=== PATIENT | male | born 1995 | race Caucasian/White ===

== ENCOUNTER 2019-02-01 17:12 | Inpatient (IN) | payer BC, SELFPAY ==
[2019-02-01 17:13] VITALS: BP 127/71; PULSE 64; RESP 16; TEMP 36.8; O2SAT 99; BMI 24.2
--- NOTE | 2019-02-01 17:45 | ED.DCSUM_ITS ---
- ER Visit Summary Date of Service: 02/01/19 Chief Complaint: Requesting heroin detox History of Present Illness: The patient is a 24 M presenting requesting heroin detox. Patient states his last use was last night. He uses approximate 1 g of heroin per day. He relapsed approximately 3 months ago. Prior to that his last detox was 6 months ago. He denies alcohol or other drug use. He complains of mild abdominal cramping, nausea. He went to [facility] earlier today and they stated that he was not withdrawing yet and advised to wait until he was in withdrawal to come to the ED. Patient has been waiting in the waiting room for several hours and he now feels like he is in withdrawal. Physical Examination: Vitals are stable. Patient is afebrile. Alert no acute distress. HEENT exam is unremarkable. Neck is supple. Lungs are clear and equal bilaterally. Heart is regular rate and rhythm. Abdomen is soft nontender nondistended. Extremities are unremarkable. Skin is warm and dry. No focal neurologic deficit. Remainder of exam is unremarkable. Emergency Department Course and Treatment: CBC, chemistries unremarkable. ALT 127, AST 54. Alcohol is negative. Tox positive for opiates. Discussed with the hospitalist for admission. Disposition: Admission Impression: Heroin withdrawal This note was generated with [employer] dictation software. It may contain incorrect words, spelling, and punctuation that were not noted in review of the chart prior to signing ED Disposition - Plan for ED Patient: Referrals: Care Physician,No Primary [Primary Care Provider] -
[2019-02-01 17:50] LABS: Absolute Lymphocyte Count 1.04 X10^3/ul (0.83-4.51); Absolute Neutrophil Count 3.3 X10^3/uL (2.0-7.7); Basophil# 0.02 X10^3/uL; Basophil% 0.4 % (0-1); Eosinophil# 0.16 X10^3/uL; Eosinophils% 3.2 % (0-5); Hematocrit 45.4 % (40-54); Hemoglobin 15.8 g/dl (13.0-16.5); Lymphocyte # 1.04 X10^3/ul (4.0); Lymphocyte % 20.8 % (19-41); Mean Corp Hgb Conc 34.8 g/gl (32-36); Mean Corpuscular Hgb 30.7 pg (27.0-32.0); Mean Corpuscular Volume 88.2 fL (80-94); Mean Platelet Vol. 9.9 fl (6.2-12.0); Monocyte# 0.47 X10^3/uL; Monocyte% 9.4 % (0-10); Neutrophil # 3.29 X10^3/uL (2.7-7.7); Platelet Count 200 K/mm3 (150-450); RBC Distribution Width CV 12.5 % (11.6-14.6); RBC Distribution Width SD 40.1 fl (35.1-43.9); Red Blood Count 5.15 M/mm3 (4.6-6.2)
[2019-02-01 17:56] LABS: POSITIVE COUNT NO; POSITIVE DIFFERENTIAL NO; POSITIVE MORPHOLOGY NO
[2019-02-01 18:06] LABS: AST(SGOT) 54 U/L (15-37); Alanine Aminotransfer ALT/SGPT 127 U/L (16-61); Albumin, Serum 4.2 g/dL (3.2-5.0); Alkaline Phosphatase 100 U/L (45-117); Anion Gap 6 (5-15); BUN 8 mg/dL (7-18); BUN/Creat Ratio 10.3 RATIO (10-20); Bilirubin, Direct 0.16 mg/dL (0.00-0.30); Calcium,Total 8.9 mg/dL (8.5-10.1); Chloride 103 mmol/L (98-107); Creatinine, Serum 0.77 mg/dL (0.70-1.30); EST Glomerular Filtration Rate 129 mL/min (>60); Est Glom Filt Rate - Afr Amer 156 mL/min (>60); Estimated Creatinine Clearance 131.19 ml/min; Globulin 3.9 g/dL (2.2-4.2); Glucose 97 mg/dL (74-106); Potassium 4.4 mmol/L (3.5-5.1); Protein, Total 8.1 g/dL (6.4-8.2); Sodium Level 139 mmol/L (136-145)
[2019-02-01 19:12] VITALS: BP 104/64; PULSE 55; RESP 16; O2SAT 100
[2019-02-01 19:18] LABS: Amphetamine Urine VISTA NEGATIVE (<1000 ng/mL); Barbiturate Urine VISTA NEGATIVE (< 200 ng/mL); Benzodiazepine Urine VISTA NEGATIVE (< 200 ng/mL); Cocaine Urine VISTA NEGATIVE (< 300 ng/mL); Ecstacy Urine VISTA NEGATIVE (< 500 ng/mL); Methadone Urine VISTA NEGATIVE (< 300 ng/mL); PCP Urine VISTA NEGATIVE (< 25 ng/mL); THC Urine VISTA NEGATIVE (< 50 ng/mL); Vista UDS pH Range 6
[2019-02-01 19:28] VITALS: BMI 24.2
--- NOTE | 2019-02-01 19:30 | PCM.HP.STD ---
Problem List (1) Opiate dependence Status: Acute Qualifiers: Substance use status: in withdrawal Qualified Code(s): F11.23 - Opioid dependence with withdrawal (2) Acute opioid withdrawal Status: Acute History of Present Illness Date of Admission: 02/01/19 Chief Complaint: Acute opioid withdrawal - 1 day The patient is a 24 year old M with no significant PMHx who comes in for medical stabilization with acute opioid withdrawal symptoms. He admits to using 1 g of heroin daily. Last use was 10:30pm 01/31/19. He admits to being in detox 6 months ago. He denies any other illicit drug use or alcohol use. He admits to smoking about 1 pack of cigarettes a day He saw [facility] earlier on but did not have any active withdrawal symptoms at the time. He presented later on to the emergency department with planes of crampy abdominal pain, feeling cold, slightly nauseous but no vomiting, having mild muscle aches. His vitals were stable in the emergency department. His admitting CINA scale was 10. His admitting blood work was unremarkable except for slight elevation in AST and ALT. His urine toxicology was positive for opiates. Alcohol level was 9. Past Medical History Allergies No Known Allergies Allergy (Verified 02/01/19 17:26) Home Medications: Ambulatory Orders Medication Instructions Recorded NK 02/01/19 Surgical History: no surgical history Psychiatric History: No pertinent psych hx Lives: With Family Smoking Status: Current every day smoker Tobacco Use: Cigarettes Alcohol: None Drugs: Heroin - *Family History Maternal History Items: No pertinent history Paternal History Items: No pertinent history Sibling History Items: No pertinent history Review of Systems Constitutional: Reports: Anorexia, Chills. Denies: Fever, Weakness, Weight Change, Fatigue Eyes: Denies: Blurred vision, Cataracts, Conjunctivae Inflammation, Pain, Redness, Vision Change HEENT: Denies: Difficulty Hearing, Difficulty Swallowing, Head Aches, Hearing Changes, Sinus Congestion, Sinus Drainage, Sore Throat Cardiovascular: Denies: Chest Pain, Claudication, Orthopnea, Palpitations Respiratory: Denies: Cough, Hemoptysis, Pleuritic Pain, Shortness of breath at rest, Shortness of breath upon exertion, Sputum production Gastrointestinal: Reports: Abdominal Pain, Nausea. Denies: Diarrhea, Dyspepsia, Hematemesis, Hematochezia, Vomiting Genitourinary: Denies: Dysuria, Frequency, Incontinence, Nocturia Musculoskeletal: Reports: Muscle pain. Denies: Joint Pain, Joint stiffness, Joint swelling, Joint Tenderness Skin: Denies: Dryness, Jaundice, Pruritis, Rash, Wounds Neurological: Denies: Difficulty swallowing, Focal weakness, Numbness, Tingling Psychiatric: Denies: Anxiety, Depression, Homicidal Ideations, Suicidal Ideations Hematologic/ Lymphatic: Denies: Easy Bruising, Easy Bleeding VTE Information - Inpt Only VTE Present on Admission: No VTE Pharm Prophylaxis ordered?: Yes Patient Problems: Active and Suspected Problems Opiate dependence (Acute) Acute opioid withdrawal (Acute) - Physical Exam General: Alert, Oriented x3, Cooperative, No apparent distress, - - slightly restless HEENT: Atraumatic, PERRLA, EOMI, Normocephalic Oral: Moist Mucosa Neck: Supple Lungs: Clear to auscultation, Normal air movement Cardiovascular: Regular rate, Regular Rhythm, Normal S1, Normal S2, No murmurs Abdomen: Bowel Sounds Present, Soft, Non Tender, Non-Distended, No Hepato-splenomegaly Extremities: No edema Skin: No rashes, No breakdown Musculoskeletal: No Tenderness to Palpation of Joints or Extremities Lymphatic: No Cervical, Supraclavicular, or Inguinal Adenopathy Neurological: Cranial nerves II-XII grossly intact, Neuro grossly intact Psych/Mental Status: Normal Affect, Appropriate Vital Signs Temp Pulse Resp BP Pulse Ox 98.2 F 55 L 16 104/64 100 02/01/19 17:13 02/01/19 19:12 02/01/19 19:12 02/01/19 19:12 02/01/19 19:12 Oxygen Delivery Method Room Air Weight: 68.039 kg Body Mass Index (BMI) 24.2 Laboratory Tests Past 24 Hrs 02/01/19 02/01/19 02/01/19 17:30 17:30 17:30 WBC 5.0 RBC 5.15 Hgb 15.8 Hct 45.4 MCV 88.2 MCH 30.7 MCHC 34.8 RDW 12.5 RDW Differential 40.1 Plt Count 200 MPV 9.9 Immature Gran % (Auto) 0.200 Neut % (Auto) 66.0 Lymph % (Auto) 20.8 [place] % (Auto) 9.4 Eos % (Auto) 3.2 Baso % (Auto) 0.4 Absolute Neuts (auto) 3.3 Absolute Lymphs (auto) 1.04 Total Counted Not Reportable Sodium 139 Potassium 4.4 Chloride 103 Carbon Dioxide 30.0 Anion Gap 6 BUN 8 Creatinine 0.77 Estim Creat Clear Calc 131.19 Est GFR (MDRD) Af Amer 156 Est GFR (MDRD) Non-Af 129 BUN/Creatinine Ratio 10.3 Glucose 97 Calcium 8.9 Total Bilirubin 0.50 Direct Bilirubin 0.16 AST 54 H ALT 127 H Alkaline Phosphatase 100 Total Protein 8.1 Albumin 4.2 Globulin 3.9 Urine Opiates Screen Urine Methadone Screen Ur Barbiturates Screen Ur Phencyclidine Scrn Ur Amphetamines Screen U Methamphetamin-MDMA U Benzodiazepines Scrn Urine Cocaine Screen U Cannabinoids Screen Ur Drug Screen Comment Ethyl Alcohol 9.0 02/01/19 18:50 WBC RBC Hgb Hct MCV MCH MCHC RDW RDW Differential Plt Count MPV Immature Gran % (Auto) Neut % (Auto) Lymph % (Auto) [place] % (Auto) Eos % (Auto) Baso % (Auto) Absolute Neuts (auto) Absolute Lymphs (auto) Total Counted Sodium Potassium Chloride Carbon Dioxide Anion Gap BUN Creatinine Estim Creat Clear Calc Est GFR (MDRD) Af Amer Est GFR (MDRD) Non-Af BUN/Creatinine Ratio Glucose Calcium Total Bilirubin Direct Bilirubin AST ALT Alkaline Phosphatase Total Protein Albumin Globulin Urine Opiates Screen POSITIVE H Urine Methadone Screen NEGATIVE Ur Barbiturates Screen NEGATIVE Ur Phencyclidine Scrn NEGATIVE Ur Amphetamines Screen NEGATIVE U Methamphetamin-MDMA NEGATIVE U Benzodiazepines Scrn NEGATIVE Urine Cocaine Screen NEGATIVE U Cannabinoids Screen NEGATIVE Ur Drug Screen Comment Ethyl Alcohol Assessment/Plan All Active Problems Opiate dependence (Acute) Acute opioid withdrawal (Acute) 24 year old M with no significant PMHx who comes in for medical stabilization with acute opioid withdrawal symptoms. He admits to using 1 g of heroin daily. Last use was 10:30pm 01/31/19. Urine tox was positive for opiates. 1. Acute opioid withdrawal, in the known heroin use, admitting CINA score was 10. Patient is seeking medical stabilization. Reportedly seen [facility] earlier on, will consult them [facility], monitor and medicate per [facility] protocol, will use a Librium protocol as patient is not severely withdrawing 2. Nicotine dependence, will put on replacement with patch and gum 3. Elevated AST/ALT, likely transient, likely heroin related, will trend CMP in a.m. 4. DVT PPx- early ambulation Code Visit Inpatient E&M: 11934 Init Hosp L2
[2019-02-01 19:55] VITALS: BMI 23.3
[2019-02-01 19:58] VITALS: BP 115/75; PULSE 50; RESP 14; TEMP 36.2; O2SAT 100
[2019-02-01] MEDS: Pramipexole Di-HCl 0.25 MG Tablet PO (20:33)
[2019-02-01] MEDS: Dicyclomine 10 MG Capsule 20 MG PO (20:33)
[2019-02-01] MEDS: Senna Tablet 1 TABLET PO (20:33)
[2019-02-01] MEDS: chlordiazePOXIDE 25 MG Capsule PO (20:33)
[2019-02-01 22:00] VITALS: BP 111/64; PULSE 49; RESP 16; TEMP 37.1
[2019-02-01] MEDS: traZODone 50 MG Tablet PO (22:27)
[2019-02-01] MEDS: Methocarbamol 750 MG Tablet PO (22:36)
[2019-02-02] VITALS (7 sets, daily range): BP systolic 96–119; BP diastolic 52–78; PULSE 50–60; RESP 14–18; TEMP 36.4–37.1; O2SAT 99
[2019-02-02 06:29] LABS: ALB/GLOB Ratio 1.1 RATIO (0.9-2.4); AST(SGOT) 46 U/L (15-37); Alanine Aminotransfer ALT/SGPT 108 U/L (16-61); Albumin, Serum 3.8 g/dL (3.2-5.0); Alkaline Phosphatase 87 U/L (45-117); Anion Gap 7 (5-15); BUN 9 mg/dL (7-18); BUN/Creat Ratio 11.9 RATIO (10-20); Chloride 107 mmol/L (98-107); Creatinine, Serum 0.75 mg/dL (0.70-1.30); EST Glomerular Filtration Rate 133 mL/min (>60); Est Glom Filt Rate - Afr Amer 161 mL/min (>60); Estimated Creatinine Clearance 134.69 ml/min; Globulin 3.5 g/dL (2.2-4.2); Glucose 103 mg/dL (74-106); Protein, Total 7.3 g/dL (6.4-8.2); Sodium Level 142 mmol/L (136-145)
[2019-02-02] MEDS: chlordiazePOXIDE 25 MG Capsule PO (07:01)
[2019-02-02] MEDS: hydrOXYzine PAM 25 MG Capsule 50 MG PO ×2 (07:01→14:50)
[2019-02-02] MEDS: Ondansetron ODT 4 MG Tablet PO (07:01)
[2019-02-02] MEDS: Nicotine Polacrilex 2 MG GUM PO (07:03)
[2019-02-02] MEDS: Ibuprofen 600 MG Tablet PO (09:12)
[2019-02-02] MEDS: Buprenorphine HCl 2 MG TAB.SUBL SL ×2 (09:13→16:24)
--- NOTE | 2019-02-02 09:16 | PN_ITS ---
Patient Problems: Active and Suspected Problems Opiate dependence (Acute) Acute opioid withdrawal (Acute) Subjective: Patient seen and examined. He complains of withdrawal symptoms such as tremors, fevers and chills and abdominal cramps. He is here for detox from heroin. He last used IV heroin yesterday. He has been through detox previously but was unsuccessful. Review of systems otherwise negative. Labs and vitals reviewed. Vitals/I&O's: Vital Signs Temp Pulse Resp BP Pulse Ox 98.4 F 60 16 117/69 100 02/02/19 06:00 02/02/19 09:07 02/02/19 06:00 02/02/19 06:00 02/01/19 19:58 Oxygen Delivery Method Room Air Weight: 145 lb Body Mass Index (BMI) 23.3 Intake and Output for Last 24 Hours 01/31/19 02/01/19 02/02/19 23:59 23:59 23:59 Intake Total 640 / 640 Balance 640 / 640 General: Alert, Oriented x3, Cooperative, - - anxious, looks uncomfortable HEENT: Atraumatic, PERRLA, EOMI, Normocephalic Oral: Moist Mucosa Neck: Supple, No JVD, Negative Carotid Bruits Lungs: Clear to auscultation, Normal air movement, No rhonchi, No wheeze, No rales Cardiovascular: Regular rate, Regular Rhythm, Normal S1, Normal S2, No murmurs Abdomen: Bowel Sounds Present, Soft, Non Tender, Non-Distended, No Hepato- splenomegaly Extremities: No clubbing, No cyanosis, No edema, Capillary Refill Less than 3 Seconds Skin: No rashes, No breakdown Musculoskeletal: No Tenderness to Palpation of Joints or Extremities Lymphatic: No Cervical, Supraclavicular, or Inguinal Adenopathy Neurological: Cranial nerves II-XII grossly intact, Neuro grossly intact, Motor Exam 5/5 strength throughout Psych/Mental Status: Normal Affect, Appropriate, Alert and oriented to time, place, person, mood and affect Laboratory Results 02/01/19 17:30: WBC 5.0, RBC 5.15, Hgb 15.8, Hct 45.4, MCV 88.2, MCH 30.7, MCHC 34.8, RDW 12.5, RDW Differential 40.1, Plt Count 200, MPV 9.9, Immature Gran % (Auto) 0.200, Neut % (Auto) 66.0, Lymph % (Auto) 20.8, [place] % (Auto) 9.4, Eos % (Auto) 3.2, Baso % (Auto) 0.4, Absolute Neuts (auto) 3.3, Absolute Lymphs (auto) 1.04, Total Counted Not Reportable 02/01/19 17:30: Sodium 139, Potassium 4.4, Chloride 103, Carbon Dioxide 30.0, Anion Gap 6, BUN 8, Creatinine 0.77, Estim Creat Clear Calc 131.19, Est GFR (MDRD) Af Amer 156, Est GFR (MDRD) Non-Af 129, BUN/Creatinine Ratio 10.3, Glucose 97, Calcium 8.9, Total Bilirubin 0.50, Direct Bilirubin 0.16, AST 54 H, ALT 127 H, Alkaline Phosphatase 100, Total Protein 8.1, Albumin 4.2, Globulin 3.9 02/01/19 17:30: Ethyl Alcohol 9.0 02/01/19 18:50: Urine Opiates Screen POSITIVE H, Urine Methadone Screen NEGATIVE, Ur Barbiturates Screen NEGATIVE, Ur Phencyclidine Scrn NEGATIVE, Ur Amphetamines Screen NEGATIVE, U Methamphetamin-MDMA NEGATIVE, U Benzodiazepines Scrn NEGATIVE, Urine Cocaine Screen NEGATIVE, U Cannabinoids Screen NEGATIVE, Ur Drug Screen Comment 02/02/19 05:20: Sodium 142, Potassium 4.0, Chloride 107, Carbon Dioxide 28.0, Anion Gap 7, BUN 9, Creatinine 0.75, Estim Creat Clear Calc 134.69, Est GFR (MDRD) Af Amer 161, Est GFR (MDRD) Non-Af 133, BUN/Creatinine Ratio 11.9, Glucose 103, Calcium 9.0, Total Bilirubin 0.50, AST 46 H, ALT 108 H, Alkaline Phosphatase 87, Total Protein 7.3, Albumin 3.8, Globulin 3.5, Albumin/Globulin Ratio 1.1 Current Medications Acetaminophen (Tylenol) 500 mg PO Q4H PRN PRN PRN Reason: Temp > 100.4 F Al Hydroxide/Mg Hydroxide (Mylanta Ii) 30 ml PO Q6H PRN PRN PRN Reason: dyspesia Buprenorphine HCl (Buprenorphine Hcl) 4 mg SL Q8H GISELA; Taper Stop: 02/05/19 11:59 Last Admin: 02/02/19 09:13 Dose: 4 mg Documented by: Chlordiazepoxide (Librium) 25 mg PO Q6H PRN PRN PRN Reason: Moderate-Severe Anxiety Last Admin: 02/02/19 07:01 Dose: 25 mg Documented by: Clonidine (Catapres) 0.1 mg PO Q2H PRN PRN PRN Reason: Hot/Cold Sweats or Anxiety Dicyclomine HCl (Bentyl) 20 mg PO Q6H PRN PRN PRN Reason: Abdomnial Discomfort Last Admin: 02/01/19 20:33 Dose: 20 mg Documented by: Hydroxyzine Pamoate (Vistaril Pamoate Capsule) 50 mg PO Q6H PRN PRN PRN Reason: Mild Anxiety Last Admin: 02/02/19 07:01 Dose: 50 mg Documented by: Ibuprofen (Motrin) 600 mg PO Q8H PRN PRN PRN Reason: Mild-Moderate Pain (1-5/10) Last Admin: 02/02/19 09:12 Dose: 600 mg Documented by: Loperamide HCl (Imodium) 2 - 4 mg PO UD PRN PRN Reason: LOOSE STOOLS Methocarbamol (Methocarbamol) 750 mg PO Q6H PRN PRN PRN Reason: Muscle Aches Last Admin: 02/01/19 22:36 Dose: 750 mg Documented by: Nicotine (Nicoderm Cq (Pbkc)) 21 mg TRANSDERM. DAILY GISELA Last Admin: 02/01/19 20:33 Dose: 21 mg Documented by: Nicotine Polacrilex (Rugby Nicotine (Bkc)) 2 mg PO Q2H PRN PRN PRN Reason: Nicotine Craving Last Admin: 02/02/19 07:03 Dose: 2 mg Documented by: Nutritional Formula (Lactose Free) (Ensure Enlive) 120 ml PO 4X/DAY GISELA Last Admin: 02/02/19 09:13 Dose: 120 ml Documented by: Ondansetron HCl (Zofran Odt) 4 mg PO Q6H PRN PRN PRN Reason: NAUSEA Last Admin: 02/02/19 07:01 Dose: 4 mg Documented by: Pramipexole Dihydrochloride (Mirapex) 0.25 mg PO Q12H PRN PRN PRN Reason: Restless Legs Last Admin: 02/01/19 20:33 Dose: 0.25 mg Documented by: Senna (Senokot) 1 tablet PO QHS PRN PRN Reason: Constipation Last Admin: 02/01/19 20:33 Dose: 1 tablet Documented by: Trazodone HCl (Desyrel) 50 mg PO QHS [facility] Last Admin: 02/01/19 22:27 Dose: 50 mg Documented by: Medical Necessity - Tobacco Use Smoking Status: Current every day smoker Tobacco Use: Cigarettes Assessment/Plan All Active Problems Opiate dependence (Acute) Acute opioid withdrawal (Acute) 1. Acute opiate withdrawal * on clonidine withdrawal protocol. * patient still complaining of withdrawal symptoms, and wanted Subutex added on * Buprenorphine taper aded on * 2. Nicotine dependence: on nicotine patch. Counselled to quit 3. Elevated transaminases: Trending down. AST and ALT have trended down slightly to 46 and 108 respectively. Will monitor. DVT prophylaxis: Encourage early ambulation. Low risk. Code Visit Inpatient E&M: 74522 Subs Hosp L2
[2019-02-02] MEDS: Dicyclomine 10 MG Capsule 20 MG PO (11:01)
[2019-02-02] MEDS: Acetaminophen 500 MG Tablet PO ×2 (13:08→17:54)
[2019-02-02] MEDS: Pramipexole Di-HCl 0.25 MG Tablet PO (13:08)
[2019-02-02] MEDS: Methocarbamol 750 MG Tablet PO (14:50)
--- NOTE | 2019-02-02 15:11 | CHAPLAIN ---
patient sleeping; will attempt a later visit
[2019-02-03] MEDS: traZODone 50 MG Tablet PO ×2 (00:27→23:11)
[2019-02-03] MEDS: Buprenorphine HCl 2 MG TAB.SUBL SL ×3 (00:27→15:24)
[2019-02-03 02:00] VITALS: RESP 16
[2019-02-03 04:00] VITALS: BP 120/67; PULSE 68; RESP 16; TEMP 36.7; O2SAT 98
[2019-02-03 05:56] VITALS: RESP 16
[2019-02-03] MEDS: Methocarbamol 750 MG Tablet PO ×2 (08:28→15:24)
[2019-02-03] MEDS: chlordiazePOXIDE 25 MG Capsule PO ×3 (08:28→23:13)
[2019-02-03] MEDS: Pramipexole Di-HCl 0.25 MG Tablet PO (08:28)
[2019-02-03 10:00] VITALS: BP 118/67; PULSE 70; RESP 16; TEMP 36.7
--- NOTE | 2019-02-03 10:12 | PN_ITS ---
Patient Problems: Active and Suspected Problems Opiate dependence (Acute) Acute opioid withdrawal (Acute) Subjective: Patient seen and examined. He has no complaints and feels well. Review of systems otherwise negative. Labs and vitals reviewed. Today's day 2 of detox. Vitals/I&O's: Vital Signs Temp Pulse Resp BP Pulse Ox 98.0 F 68 16 120/67 98 02/03/19 04:00 02/03/19 04:00 02/03/19 05:56 02/03/19 04:00 02/03/19 04:00 Oxygen Delivery Method Room Air Weight: 145 lb 0.004 oz Body Mass Index (BMI) 23.3 Intake and Output for Last 24 Hours 02/01/19 02/02/19 02/03/19 23:59 23:59 23:59 Intake Total 640 / 1080 680 / 680 Balance 640 / 1080 680 / 680 General: Alert, Oriented x3, Cooperative, HEENT: Atraumatic, PERRLA, EOMI, Normocephalic Oral: Moist Mucosa Neck: Supple, No JVD, Negative Carotid Bruits Lungs: Clear to auscultation, Normal air movement, No rhonchi, No wheeze, No rales Cardiovascular: Regular rate, Regular Rhythm, Normal S1, Normal S2, No murmurs Abdomen: Bowel Sounds Present, Soft, Non Tender, Non-Distended, No Hepato- splenomegaly Extremities: No clubbing, No cyanosis, No edema, Capillary Refill Less than 3 Seconds Skin: No rashes, No breakdown Musculoskeletal: No Tenderness to Palpation of Joints or Extremities Lymphatic: No Cervical, Supraclavicular, or Inguinal Adenopathy Neurological: Cranial nerves II-XII grossly intact, Neuro grossly intact, Motor Exam 5/5 strength throughout Psych/Mental Status: Normal Affect, Appropriate, Alert and oriented to time, place, person, mood and affect Current Medications Acetaminophen (Tylenol) 500 mg PO Q4H PRN PRN PRN Reason: Temp > 100.4 F Last Admin: 02/02/19 17:54 Dose: 500 mg Documented by: Al Hydroxide/Mg Hydroxide (Mylanta Ii) 30 ml PO Q6H PRN PRN PRN Reason: dyspesia Buprenorphine HCl (Buprenorphine Hcl) 2 mg SL Q8H GISELA; Taper Stop: 02/05/19 11:59 Last Admin: 02/03/19 08:23 Dose: 2 mg Documented by: Chlordiazepoxide (Librium) 25 mg PO Q6H PRN PRN PRN Reason: Moderate-Severe Anxiety Last Admin: 02/03/19 08:28 Dose: 25 mg Documented by: Clonidine (Catapres) 0.1 mg PO Q2H PRN PRN PRN Reason: Hot/Cold Sweats or Anxiety Dicyclomine HCl (Bentyl) 20 mg PO Q6H PRN PRN PRN Reason: Abdomnial Discomfort Last Admin: 02/02/19 11:01 Dose: 20 mg Documented by: Hydroxyzine Pamoate (Vistaril Pamoate Capsule) 50 mg PO Q6H PRN PRN PRN Reason: Mild Anxiety Last Admin: 02/02/19 14:50 Dose: 50 mg Documented by: Ibuprofen (Motrin) 600 mg PO Q8H PRN PRN PRN Reason: Mild-Moderate Pain (1-5/10) Last Admin: 02/02/19 09:12 Dose: 600 mg Documented by: Loperamide HCl (Imodium) 2 - 4 mg PO UD PRN PRN Reason: LOOSE STOOLS Methocarbamol (Methocarbamol) 750 mg PO Q6H PRN PRN PRN Reason: Muscle Aches Last Admin: 02/03/19 08:28 Dose: 750 mg Documented by: Nicotine (Nicoderm Cq (Pbkc)) 21 mg TRANSDERM. DAILY [facility] Last Admin: 02/02/19 10:59 Dose: Not Given Documented by: Nicotine Polacrilex (Rugby Nicotine (Bkc)) 2 mg PO Q2H PRN PRN PRN Reason: Nicotine Craving Last Admin: 02/02/19 07:03 Dose: 2 mg Documented by: Nutritional Formula (Lactose Free) (Ensure Enlive) 120 ml PO 4X/DAY GISELA Last Admin: 02/02/19 21:26 Dose: Not Given Documented by: Ondansetron HCl (Zofran Odt) 4 mg PO Q6H PRN PRN PRN Reason: NAUSEA Last Admin: 02/02/19 07:01 Dose: 4 mg Documented by: Pramipexole Dihydrochloride (Mirapex) 0.25 mg PO Q12H PRN PRN PRN Reason: Restless Legs Last Admin: 02/03/19 08:28 Dose: 0.25 mg Documented by: Senna (Senokot) 1 tablet PO QHS PRN PRN Reason: Constipation Last Admin: 02/01/19 20:33 Dose: 1 tablet Documented by: Trazodone HCl (Desyrel) 50 mg PO QHS [facility] Last Admin: 02/03/19 00:27 Dose: 50 mg Documented by: Medical Necessity - Tobacco Use Smoking Status: Current every day smoker Tobacco Use: Cigarettes Assessment/Plan All Active Problems Opiate dependence (Acute) Acute opioid withdrawal (Acute) 1. Acute opiate withdrawal * on buprenorphine withdrawal protocol * stable * 2. Nicotine dependence: on nicotine patch. Counselled to quit 3. Elevated transaminases: Trending down. stable. Will monitor DVT prophylaxis: Encourage early ambulation. Low risk. Code Visit Inpatient E&M: 38321 Subs Hosp L2
--- NOTE | 2019-02-03 14:38 | CHAPLAIN ---
Type of Pastoral Visit _x__ Initial Visit ___ Follow-up Visit ___ On-call Visit ___ General Patient Visit ___ Spiritual Assessment ___ Family Conference ___ Bereavement ___ Rapid Response ___ Code Blue ___ Other (describe below) Pastoral Care Referral From _x__ Patient ___ Family ___ Nurse ___ Physician ___ Civil Drafting Technician ___ Grain Broker ___ Other (describe below) Sacrament/Intervention _x__ Active listening ___ Anointing ___ Jew ___ Bereavement ___ Communion ___ Lisbeth exploration ___ _x__ Life review _x__ Prayer ___ Reconciliation ___ Sacrament of Sick _x__ Supportive presence ___ Wedding ___ Other (describe below) Pastoral Comments patient awakens and then sits up upon entrance of this solutions engineer into room; pt is slow to talk but does more as he becomes more awake; pt shares some life history and background; pt states that he has some support from family and plans to return home and do outpatient counseling; pt says that he has no lisbeth or oriental orthodox background but accepts a prayer;
[2019-02-03 15:24] VITALS: BP 115/70; PULSE 71; RESP 16; TEMP 36.7
[2019-02-03 19:56] VITALS: BP 109/73; PULSE 80; RESP 16; TEMP 36.6
--- NOTE | 2019-02-04 08:56 | DCINST_ITS ---
- Discharge Diagnoses Current Active Problems: Current Active and Chronic Problems Opiate dependence (Acute) Acute opioid withdrawal (Acute) You will use the following diet at home:: No restrictions Your food should be the consistency of: Regular Your liquids should be the consistency of: Regular/Thin Discharge Activity: Return to Normal Activity Weight Bearing Status: Weight bearing as tolerated Call your doctor if you observe: Fever of 101 or Higher, Shortness of breath, Dizziness Instructions: Understanding Heroin Abuse and Addiction Allergies/Adverse Reactions: Allergies No Known Allergies Allergy (Verified 02/01/19 17:26) Medications to take at Discharge NK 02/01/19 Primary Care Physician: Care Physician,No Primary [Primary Care Provider] - Please follow up with your Primary Care Physician in: PCP in one week Test Results: Test results from this visit will be discussed in further detail at your follow- up appointment, if applicable. Proposed Discharge Date: 02/04/19
--- NOTE | 2019-02-04 08:58 | DS.PCM_ITS ---
Discharge Date and Diagnosis Date of Admission: 02/01/19 Date of Discharge: 02/04/19 - Primary Discharge Diagnosis Active and Suspected Problems Opiate dependence (Acute) Acute opioid withdrawal (Acute) Hospital Course and Treatment Consultations 02/01/19 20:17 Consult: Sukhdev Mejia Routine Consulting Provider: Consulted Physician Type:: Other * Specify below * Reason for consult:: Opioid withdrawal Operations: None Procedures: None Summary of Care Provided: The patient is a 24 year old M admitted on 02/01/19 for acute opioid withdrawal. He admitted to using ~ 1gram of heroin daily, with last use being ~ 10:30pm on 01/31/19. Complained of abdominal pain and cramping, chills slightly nauseous but had no vomiting. Vitals were stable in the ED NCI any score was 10. Blood work was significant only for mild elevation in AST and ALT. Urine tox was positive for opiates and alcohol level is only 9. He was admitted to be managed for acute opiate withdrawal. He was started on Librium withdrawal protocol. However patient said he was still in withdrawal and subsequently buprenorphine withdrawal protocol was added. He underwent 3-day detox process. He remained stable and was discharged home on 02/04/2019. He is to follow-up with outpatient rehab facility. Patient was seen and examined prior to discharge. He had no complaints. Review of systems otherwise negative. Labs and vitals reviewed. [] o/e: Vital Signs Height 5 ft 6 in Weight: 145 lb 0.004 oz Weight in Pounds 145.0 lbs Pulse Ox 98 Temperature 97 F Pulse Rate 58 Respiratory Rate 18 Blood Pressure 104/66 Blood Pressure Position Semi-Fowlers General: Alert, Oriented x3, Cooperative, HEENT: Atraumatic, PERRLA, EOMI, Normocephalic Oral: Moist Mucosa Neck: Supple, No JVD, Negative Carotid Bruits Lungs: Clear to auscultation, Normal air movement, No rhonchi, No wheeze, No rales Cardiovascular: Regular rate, Regular Rhythm, Normal S1, Normal S2, No murmurs Abdomen: Bowel Sounds Present, Soft, Non Tender, Non-Distended, No Hepato- splenomegaly Extremities: No clubbing, No cyanosis, No edema, Capillary Refill Less than 3 Seconds Skin: No rashes, No breakdown Musculoskeletal: No Tenderness to Palpation of Joints or Extremities Lymphatic: No Cervical, Supraclavicular, or Inguinal Adenopathy Neurological: Cranial nerves II-XII grossly intact, Neuro grossly intact, Motor Exam 5/5 strength throughout Psych/Mental Status: Normal Affect, Appropriate, Alert and oriented to time, place, person, mood and affect Plan as above. - Physical Exam Vital Signs Temp Pulse Resp BP Pulse Ox 97.8 F 80 16 109/73 98 02/03/19 19:56 02/03/19 19:56 02/03/19 19:56 02/03/19 19:56 02/03/19 04:00 Oxygen Delivery Method Room Air Weight: 145 lb 0.004 oz Body Mass Index (BMI) 23.3 Intake and Output for Last 24 Hours 02/02/19 02/03/19 02/04/19 23:59 23:59 23:59 Intake Total 640 / 1080 680 / 1160 480 / 480 Balance 640 / 1080 680 / 1160 480 / 480 Discharge Diet: No Restrictions Discharge Activity: Return to Normal Activity Weight Bearing Status: Weight bearing as tolerated Call your doctor if you observe: Fever of 101 or Higher, Shortness of breath, Dizziness Home Medications: Medications to take at Discharge NK 02/01/19 Primary Care Physician: Care Physician,No Primary [Primary Care Provider] - Please follow up with your Primary Care Physician in: PCP in one week Patient Instructions: Understanding Heroin Abuse and Addiction Disposition: Home Minutes spent on discharge:: 35 Patient Condition:: Stable Medical Necessity - Tobacco Use Smoking Status: Current every day smoker Tobacco Use: Cigarettes Meaningful Use Info Meaningful Use Diagnoses (Choose all that apply): None applicable Code Visit Inpatient E&M: 14283 Disch Hosp
[2019-02-04 09:26] VITALS: BP 104/66; PULSE 58; RESP 18; TEMP 36.1
--- NOTE | 2019-02-04 09:52 | NURSING ---
Patient states he refused 0000 subutex and does not want the 1200 dose. Notified pt that doctor Pepe placed d/c order and instructions and he can be d/c'ed when he is ready. Pt requested d/c at this time- papers given. Notified pt that wheelchair can be provided for d/c but that if he would prefer he may walk. Pt verbalized understanding.
== END 2019-02-04 09:55 | disposition home or self-care (01) | DRG 897 ==
LOC: ED 17:42 → MS2 19:50
PROVIDERS: Admitting Provider Internal Medicine; Emergency Provider Emergency Medicine; Visit Provider Student in an Organized Health Care Education/Training Program
DX: F11.23 Opioid dependence with withdrawal (principal); F17.210 Nicotine dependence, cigarettes, uncomplicated
CPT/HCPCS: 36415; 80048; 80053; 80076; 80307; 80320; 85025; 97802; 99281; 99406; G0480